=== PATIENT | female | born 1950 | race Caucasian/White ===

== ENCOUNTER → 2018-11-01 | Outpatient (CLI) | payer OTHER | END | disposition home or self-care (01) | LOC: MAMMO 15:33 | DX: Z12.31 Encounter for screening mammogram for malignant neoplasm of breast (principal) ==

== ENCOUNTER 2024-08-30 13:31 | Emergency (ER) | payer MEDICARE ==
[~2024-08-30] VITALS: Wt 50.8 kg
[2024-08-30] MEDS ORDERED: Tdap Vaccine 0.5 ML SYR (Adult Vaccine) IM ONE (13:45)
[2024-08-30] MEDS ORDERED: AMOX-CLAV 875-1 EACH PO (14:42)
== END 2024-08-30 14:54 | disposition home or self-care (01) ==
LOC: ED 13:31
DX: S63.285A Dislocation of proximal interphalangeal joint of left ring finger, initial encounter (principal); S61.215A Laceration without foreign body of left ring finger without damage to nail, initial encounter; Z90.49 Acquired absence of other specified parts of digestive tract; Z98.890 Other specified postprocedural states; W54.0XXA Bitten by dog, initial encounter; Y93.89 Activity, other specified; Y92.009 Unspecified place in unspecified non-institutional (private) residence as the place of occurrence of the external cause; Y99.8 Other external cause status